=== PATIENT | female | born 1930 | race Caucasian/White ===

== ENCOUNTER 2018-09-08 09:06 | Emergency (ER) | payer MEDICARE, OTHER ==
[~2018-09-08] VITALS: Ht 167.6 cm; Wt 90.7 kg
[~2018-09-08 09:06] MED LIST: CALCIUM 600 +1 EAC8 PO; CHLORTHALIDONE25 MG PO; FLAGYL250 MG PO; LISINOPRIL10 MG; LISINOPRIL20 MG PO; METOPROLOL SUCC50 MG PO; TOPROL XL50 MG PO; VITAMIN D; VITAMIN D5000 UNIT PO
== END 2018-09-08 12:29 | disposition home or self-care (01) ==
LOC: ED 09:06
DX: K92.2 Gastrointestinal hemorrhage, unspecified (principal); I10 Essential (primary) hypertension; Z88.5 Allergy status to narcotic agent; Z88.8 Allergy status to other drugs, medicaments and biological substances; Z79.899 Other long term (current) drug therapy
CPT/HCPCS: 80053; 85025; 99283